=== PATIENT | female | born 2000 | race Asian ===

== ENCOUNTER 2018-09-04 18:07 | Emergency (ER) | payer OTHER ==
--- OUTSIDE RECORDS SUMMARY | 2018-09-04 18:28 | XMS REPORT | Continuity of Care Document ---
:2000 External Reference #:[id number] Author Name Clarice Owen O.D. Address [address] [place] [address] Care Team Providers Name Role Phone Makeda Clemens [employer] Primary Care Physician Unavailable Payers Date Identification Numbers Payment Provider Subscriber Policy Number: [id number] [employer] aWhere [facility] Garth Stoddard PayID: [id number] [address] [place] [address] Advance Directives Description No Information Available Problems Date Description Provider Status Onset: Asthma Active Onset: 07/18/2018 Myopia Amanda Davis O.D. Active Onset: 07/18/2018 Regular astigmatism Amanda Davis O.D. Active Onset: 07/18/2018 Viral conjunctivitis Amanda Davis O.D. Active Family History Date Family Member(s) Observation Comments Father No Current Problems Mother No Current Problems Social History Type Date Description Comments Sex Unknown Marital Status Single Occupation Student ETOH Use Denies alcohol use Tobacco Use Start: Unknown Patient has never smoked Recreational Drug Use Denies Drug Use Smoking Status Reviewed: 08/09/18 Patient has never smoked Allergies, Adverse Reactions, Alerts Date Description Reaction Status Severity Comments 07/18/2018 Wheat Active 07/18/2018 Gluten Active Medications Medication Date Status Form Strength Qnty SIG Indications Ordering Provider Tobramycin-Dexa 07/18/19 Active Suspension 0.3-0.1% 10ml once a B30.8 Amanda Ng methasone 19 day Kwaku Davis No Active 07/18/19 Hx Unknown Medications 19 - 07/18/19 19 Immunizations Description No Information Available Vital Signs Description No Information Available Results Description No Information Available Procedures Date Code Description Status 07/18/2018 73113 New Patient Comprehensive Exam Completed Encounters Type Date Location Provider Dx Diagnosis Office Visit 07/24/2018 Amanda Rojo B30.8 Other viral 8:15a , pc Kwaku Davis conjunctivitis Plan of Treatment 08/09/2018 - Clarice Owen O.D.B30.8 Other viral conjunctivitisComments: Smoking can increase the risk of developing or worsening any eye related disease , as well as affect your overall health. If you are a smoker, we strongly recommend that you quit.If you are not a smoker, we strongly recommend that you do not start. You may resume contact lens wear.Use artificial tears as neededFollow up:as needed
[2018-09-04 18:46] LABS: Urine Appearance Clear; Urine Bacteria Absent (Absent); Urine Bilirubin Negative (Negative); Urine Blood 3+ (Negative); Urine Color Straw; Urine Glucose Negative (Negative); Urine Ketones Negative (Negative); Urine Nitrite Negative (Negative); Urine Protein Negative (Negative); Urine Red Blood Cell Trace(0-2/hpf) (Absent); Urine Specific Gravity 1.001 (1.010-1.030); Urine Squamous Epithelial Cell Present (Absent); Urine Urobilinogen Negative (Negative); Urine White Blood Cell Absent (Absent)
[2018-09-04 21:31] LABS: Hematocrit 33 % (33-41); Hemoglobin 10.4 g/dL (12.0-16.0); Mean Corpuscular HGB Conc 32 g/dL (31-36); Mean Corpuscular Hemoglobin 22 pg (27-31); Mean Corpuscular Volume 71 fL (80-97); Mean Platelet Volume 10.5 fL (7.4-10.4); Platelet Count 168 10^3/uL (150-450); Red Blood Count 4.61 10^6 /uL (3.70-4.87); Red Cell Distribution Width 16 % (10.5-15); White Blood Count 6.3 10^3/uL (3.5-10.8)
[2018-09-04 21:41] LABS: ALT 9 U/L (7-52); AST 15 U/L (13-39); Albumin 4.3 g/dL (3.2-5.2); Albumin/Globulin Ratio 1.4 (1-3); Alkaline Phosphatase 46 U/L (34-104); Anion Gap 7 mmol/L (2-11); BUN/Creatinine Ratio 18.6 (8-20); Blood Urea Nitrogen 11 mg/dL (6-24); CO2 Carbon Dioxide 26 mmol/L (22-32); Calcium 9.2 mg/dL (8.6-10.3); Chloride 105 mmol/L (101-111); EGFR African American 157.2 (>60); EGFR Non-African American 129.9 (>60); Globulin 3.1 g/dL (2-4); Glucose 114 mg/dL (70-100); Potassium 3.8 mmol/L (3.5-5.0); Sodium 138 mmol/L (135-145); Total Protein 7.4 g/dL (6.4-8.9)
[2018-09-04 21:49] LABS: HCG Pregnancy < 0.60 mIU/mL
[2018-09-04 21:54] LABS: ABS Basophils 0 10^3/ul (0-0.2); ABS Eosinophils 0.2 10^3/ul (0-0.6); ABS Lymphocytes 1.8 10^3/ul (1.0-4.8); ABS Monocytes 0.4 10^3/ul (0-0.8); ABS Neutrophils 3.8 10^3/ul (1.5-7.7); ABS Nucleated RBC 0 10^3/ul; Eosinophil % 2.9 %; Lymphocyte % 28.9 %; Nucleated Red Blood Cells % 0
[2018-09-04] MEDS ORDERED: Iohexol 300* (CONTRAST) 10 ML SDV IV ONE (22:13)
--- NOTE | 2018-09-04 22:45 | ED ---
GI/ HPI - HPI Summary HPI Summary: 18 year old female presents with hematuria today. She denies any abdominal pain. No flank pain. No dysuria. No urgency or frequency. only compliant of hematuria. States that there is been no clots. She states that it is bright red and has been decreasing in intensity. No recent illness. No sore throat. No recent strep dx. she has one uncle who had hematuria was found to have cancer. No family history of any renal issues. - History of Current Complaint Chief Complaint: EDUrogenitalProblems Time Seen by Provider: 09/04/18 20:59 Stated Complaint: EXPERIENCING BLOOD IN MY URINE PER PT Pain Intensity: 0 - Allergy/Home Medications Allergies/Adverse Reactions: Allergies Allergy/AdvReac Type Severity Reaction Status Date / Time gluten Allergy GI Upset Verified 09/04/18 18:22 Home Medications: Home Medications NK [No Home Medications Reported] 09/04/18 [History Confirmed 09/04/18] PMH/Surg Hx/FS Hx/Imm Hx Endocrine/Hematology History: Denies: Hx Diabetes Cardiovascular History: Denies: Hx Hypertension History: Denies: Hx Renal Disease Infectious Disease History: No Infectious Disease History: Denies: Traveled Outside the [place] in Last 30 Days - Family History Known Family History: Positive: Non-Contributory - Social History Alcohol Use: None Substance Use Type: Reports: None Smoking Status (MU): Never Smoked Tobacco Review of Systems Negative: Fever Negative: Chest Pain Negative: Shortness Of Breath Negative: Abdominal Pain, Vomiting, Nausea Positive: hematuria. Negative: dysuria, flank pain All Other Systems Reviewed And Are Negative: Yes Physical Exam Triage Information Reviewed: Yes Vital Signs On Initial Exam: Initial Vitals Temp Pulse Resp BP Pulse Ox 98.5 F 86 16 112/80 100 09/04/18 18:16 09/04/18 18:16 09/04/18 18:16 09/04/18 18:16 09/04/18 18:16 Vital Signs Reviewed: Yes Appearance: Positive: Well-Appearing Skin: Positive: Warm, Dry Head/Face: Positive: Normal Head/Face Inspection Eyes: Positive: Normal, Conjunctiva Clear ENT: Positive: Pharynx normal Respiratory/Lung Sounds: Positive: Clear to Auscultation, Breath Sounds Present Cardiovascular: Positive: Normal, RRR Abdomen Description: Positive: Nontender, Soft. Negative: CVA Tenderness (R), CVA Tenderness (L) Bowel Sounds: Positive: Present Musculoskeletal: Positive: Normal Neurological: Positive: Normal Psychiatric: Positive: Normal Diagnostics - Vital Signs Vital Signs Temp Pulse Resp BP Pulse Ox 09/04/18 20:15 99.9 F 75 16 124/70 99 09/04/18 18:16 98.5 F 86 16 112/80 100 - Laboratory Lab Results: Lab Results 09/04/18 09/04/18 09/04/18 Range/Units 18:30 21:05 21:05 WBC 6.3 (3.5-10.8) 10^3/uL RBC 4.61 (3.70-4.87) 10^6 /uL Hgb 10.4 L (12.0-16.0) g/dL Hct 33 (33-41) % MCV 71 L (80-97) fL MCH 22 L (27-31) pg MCHC 32 (31-36) g/dL RDW 16 H (10.5-15) % Plt Count 168 (150-450) 10^3/uL MPV 10.5 H (7.4-10.4) fL Neut % (Auto) 61.0 % Lymph % (Auto) 28.9 % [place] % (Auto) 6.9 % Eos % (Auto) 2.9 % Baso % (Auto) 0.3 % Absolute Neuts (auto) 3.8 (1.5-7.7) 10^3/ul Absolute Lymphs (auto) 1.8 (1.0-4.8) 10^3/ul Absolute Monos (auto) 0.4 (0-0.8) 10^3/ul Absolute Eos (auto) 0.2 (0-0.6) 10^3/ul Absolute Basos (auto) 0 (0-0.2) 10^3/ul Absolute Nucleated RBC 0 10^3/ul Nucleated RBC % 0 Sodium 138 (135-145) mmol/L Potassium 3.8 (3.5-5.0) mmol/L Chloride 105 (101-111) mmol/L Carbon Dioxide 26 (22-32) mmol/L Anion Gap 7 (2-11) mmol/L BUN 11 (6-24) mg/dL Creatinine 0.59 (0.51-0.95) mg/dL Est GFR ( Amer) 157.2 (>60) Est GFR (Non-Af Amer) 129.9 (>60) BUN/Creatinine Ratio 18.6 (8-20) Glucose 114 H (70-100) mg/dL Calcium 9.2 (8.6-10.3) mg/dL Total Bilirubin 0.30 (0.2-1.0) mg/dL AST 15 (13-39) U/L ALT 9 (7-52) U/L Alkaline Phosphatase 46 (34-104) U/L Total Protein 7.4 (6.4-8.9) g/dL Albumin 4.3 (3.2-5.2) g/dL Globulin 3.1 (2-4) g/dL Albumin/Globulin Ratio 1.4 (1-3) Beta HCG, Quant < 0.60 mIU/mL Urine Color Straw Urine Appearance Clear Urine pH 7.0 (5-9) Ur Specific [place] 1.001 L (1.010-1.030) Urine Protein Negative (Negative) Urine Ketones Negative (Negative) Urine Blood 3+ A (Negative) Urine Nitrate Negative (Negative) Urine Bilirubin Negative (Negative) Urine Urobilinogen Negative (Negative) Ur Leukocyte Esterase Negative (Negative) Urine WBC (Auto) Absent (Absent) Urine RBC (Auto) Trace(0-2/hpf) (Absent) Ur Squamous Epith Cells Present A (Absent) Urine Bacteria Absent (Absent) Urine Glucose Negative (Negative) Result Diagrams: 09/04/18 21:05 09/04/18 21:05 Lab Statement: Any lab studies that have been ordered have been reviewed, and results considered in the medical decision making process. - CT abd CT Interpretation Completed By: Radiologist Summary of CT Findings: IMPRESSION: 1. No CT findings to correlate with patient 's symptomatology. Specifically no. obstructing renal or ureteral calculi. 2. Right nephrolithiasis. GIGU Course/Dx - Course Course Of Treatment: 18 year old female presents with hematuria today. She denies any abdominal pain. No flank pain. No dysuria. No urgency or frequency. only compliant of hematuria. States that there is been no clots. She states that it is bright red and has been decreasing in intensity. No recent illness. No sore throat. No recent strep dx. she has one uncle who had hematuria was found to have cancer. No family history of any renal issues. On exam nontender flanks. Nontender abdomen. wbc normal. Renal function normal. Urine shows hematuria. no infection. CT scan shows renal stones. Patient may have passed a stone. Told to follow up with urology. patient requesting work note. Patient understands and agrees with plan. - Diagnoses Differential Diagnoses - Female: Renal Colic, Urinary Tract Infection, Ureteral Calculi, Other - nephritis Provider Diagnoses: Renal stone, Hematuria Discharge - Sign-Out/Discharge Documenting (check all that apply): Patient Departure Patient Received Moderate/Deep Sedation with Procedure: No - Discharge Plan Condition: Good Disposition: HOME Patient Education Materials: Kidney Stones (ED) Forms: *School Release Referrals: Haile Nye MD [Medical Doctor] - Additional Instructions: follow up with urology take ibuprofen as needed for pain Drink plenty of fluids Return to ED if develop any new or worsening symptoms - Billing Disposition and Condition Condition: GOOD Disposition: Home
[2018-09-04 23:54] VITALS: BP 115/73
== END 2018-09-04 23:50 | disposition home or self-care (01) ==
LOC: ED 18:07
DX: N20.0 Calculus of kidney (principal); R31.9 Hematuria, unspecified
CPT/HCPCS: 36415; 74176; 80053; 81003; 81015; 84702; 85025; 99282

== ENCOUNTER 2019-08-01 13:48 | Emergency (ER) | payer OTHER ==
[2019-08-01 14:13] LABS: Influenza B Molecular POSITIVE (Negative)
[2019-08-01] MEDS ORDERED: Ibuprofen TAB* 600 MG PO ONE (14:55)
[2019-08-01] MEDS ORDERED: Oseltamivir CAP* 75 MG CAP PO ONE (14:55)
--- NOTE | 2019-08-01 14:57 | ED ---
Influenza-Like Illness - HPI Summary HPI Summary: While in 19-year-old female with no significant past medical history presents to the emergency department today complaining of cough, nasal congestion, myalgia, diarrhea, sore throat, fever 24 hours. Patient states she has been taking Tylenol for her fever. Patient denies influenza vaccination. Patient otherwise feels well and denies chest pain, abdominal pain, rash, pain with urination, vomiting. Surgical history family history is noncontributory. - History of Current Complaint Chief Complaint: EDFluSymptoms Time Seen by Provider: 08/01/19 14:47 Hx Obtained From: Patient Onset/Duration: Gradual Onset Severity: Moderate Associated Signs & Symptoms: Fever, Myalgia, Cough, Sore Throat, Headache, Diarrhea Related Hx: Possible Flu/Infectious Exposure - Allergy/Home Medications Allergies/Adverse Reactions: Allergies Allergy/AdvReac Type Severity Reaction Status Date / Time gluten Allergy GI Upset Verified 08/01/19 15:06 Home Medications: Home Medications Acetaminophen [Tylenol Extra Strength] 500 mg PO Q4HR PRN 08/01/19 [History Confirmed 08/01/19] PMH/Surg Hx/FS Hx/Imm Hx Endocrine/Hematology History: Denies: Hx Diabetes Cardiovascular History: Denies: Hx Hypertension History: Denies: Hx Renal Disease Infectious Disease History: No Infectious Disease History: Denies: Traveled Outside the [place] in Last 30 Days - Family History Known Family History: Positive: Non-Contributory - Social History Alcohol Use: None Substance Use Type: Reports: None Smoking Status (MU): Never Smoked Tobacco Review of Systems Positive: Fever, Fatigue Eyes: Negative Positive: Sore Throat, Nasal Discharge Cardiovascular: Negative Positive: Cough. Negative: Shortness Of Breath Positive: Diarrhea Genitourinary: Negative Positive: Myalgia Skin: Negative Neurological/Mental Status: Negative Psychological: Normal All Other Systems Reviewed And Are Negative: Yes Physical Exam Triage Information Reviewed: Yes Vital Signs On Initial Exam: Initial Vitals Temp Pulse Resp BP Pulse Ox 99.4 F 113 18 98/76 97 08/01/19 13:51 08/01/19 13:51 08/01/19 13:51 08/01/19 13:51 08/01/19 13:51 Vital Signs Reviewed: Yes Appearance: Positive: Well-Appearing, No Pain Distress, Well-Nourished Skin: Positive: Warm, Skin Color Reflects Adequate Perfusion Eyes: Positive: EOMI, FATEMEH ENT: Positive: Hearing grossly normal Respiratory/Lung Sounds: Positive: Clear to Auscultation, Breath Sounds Present Cardiovascular: Positive: RRR, S1, S2 Abdomen Description: Positive: Nontender, Soft. Negative: Distended, Guarding Bowel Sounds: Positive: Present Musculoskeletal: Positive: Strength/ROM Intact Neurological: Positive: Sensory/Motor Intact, Alert, Oriented to Person Place, Time, Normal Gait, Facial Symmetry, Speech Normal Psychiatric: Positive: Normal, Affect/Mood Appropriate AVPU Assessment: Alert Procedures - Sedation Patient Received Moderate/Deep Sedation with Procedure: No Diagnostics - Vital Signs Vital Signs Temp Pulse Resp BP Pulse Ox 08/01/19 13:51 99.4 F 113 18 98/76 97 - Laboratory Lab Results: Lab Results 08/01/19 Range/Units 13:54 Influenza A (Rapid) Not Reportable Influenza B (Rapid) Positive H (Negative) Lab Statement: Any lab studies that have been ordered have been reviewed, and results considered in the medical decision making process. Flu Symptom Course/Dx - Course Course Of Treatment: Patient was evaluated in the emergency department today for influenza-like illness. Vitals noted. Patient febrile and given 600 mg of ibuprofen. Influenza serology resulted as positive for influenza B. Patient elected to have Tamiflu treatment. She is given 1 dose of Tamiflu in the emergency department and was sent home with an outpatient prescription. Patient discharged with outpatient follow-up. - Diagnoses Differential Diagnosis/HQI/PQRI: Positive: Bronchitis, Broncholiolitis, Influenza, Pneumonia, RSV, Upper Respiratory Infection Provider Diagnoses: Influenza B Discharge ED - Sign-Out/Discharge Documenting (check all that apply): Patient Departure - Discharge Plan Condition: Stable Disposition: HOME Prescriptions: Oseltamivir CAP* [Tamiflu CAP*] 75 mg PO BID 5 Days #10 cap Patient Education Materials: Influenza (ED) Forms: *School Release Referrals: [facility] [Primary Care Provider] - 3 Days Additional Instructions: You were seen in the emergency department today and diagnosed with influenza. This is an upper respiratory virus which causes cough, muscle aches, fever, nausea, trouble breathing. Viruses are self-limiting and will go away on their own. Be sure to stay hydrated and rest. You may take [id number] decongestants as needed for your symptoms as well as NyQuil at night to improve sleep. Take Tylenol 500-650every 6 hours as needed for fever alternating with 600mg ibuprofen every 6 hours. Please see your primary care physician in 5 days for further evaluation and management. Please do not return to work or school until 24 hours after your fever breaks. Please return to the emergency department immediately if you develop any new or worsening symptoms. Take tamiflu every 12 hours for 5 days. - Billing Disposition and Condition Condition: STABLE Disposition: Home
[2019-08-01 15:19] VITALS: BP 115/73
== END 2019-08-01 15:17 | disposition home or self-care (01) ==
LOC: ED 13:48
DX: J10.1 Influenza due to other identified influenza virus with other respiratory manifestations (principal); R50.9 Fever, unspecified; R05 Cough; R51 Headache; R19.7 Diarrhea, unspecified
CPT/HCPCS: 99282; A9270-GY